=== PATIENT | male | born 1955 | race Caucasian/White ===

== ENCOUNTER 2020-10-25 16:18 | Emergency (ER) | payer OTHER, SELFPAY ==
--- NOTE | ~2020-10-25 | XR_ITS ---
EXAMINATION: XR chest 2V EXAM DATE: 10/25/2020 16:33 INDICATION: Chest series, COVID positive diagnosed 10 days ago. TECHNIQUE: Frontal and lateral projections of the chest obtained and reviewed. There is no prior jocelyne dy for comparison. FINDINGS: Some scattered ill-defined regions of airspace disease consistent with pneumonia. No pneum othorax or pleural effusion. Cardiomediastinal silhouette is normal. Lower cervical fusion hardware. IMPRESSION: Small regions of multifocal airspace disease consistent with COVID pneumonia. Reviewed, dictated and finalized at location B.
--- NOTE | 2020-10-25 16:29 | ED.URI ---
HPI - URI/Sore Throat General Chief Complaint: Upper Respiratory Infection Stated Complaint: chest hurts/covid positive Source: patient Mode of arrival: ambulatory Limitations: no limitations History of Present Illness HPI Narrative: Patient is a 64-year-old male who was sent by his PCP for further evaluation for Covid. Patient reports that PCP sent him for chest x-ray. Patient reports testing positive for Covid approximately 10 days ago. Patient reports continued cough and slight shortness of breath. He denies chest pain. He reports fever is resolved. He reports that he is feeling slightly better. Patient reports that he is taking unknown antibiotics give to me by a friend . He also reports taking vitamins. Patient is unvaccinated. MD elicited complaint: cough Related Data Home Medications Medication Instructions Recorded Confirmed No Home Medications 10/25/20 10/25/20 Allergies Allergy/AdvReac Type Severity Reaction Status Date / Time No Known Allergies Allergy Mild Unverified 10/25/20 16:38 Review of Systems Review of Systems: CONSTITUTIONAL: Denies fever, chills, or sweats. EYES: Denies visual changes, redness, or discharge. ENT: Denies rhinorrhea, congestion, sore throat, or otalgia. CARDIOVASCULAR: Denies chest pain, palpitations, or edema. RESPIRATORY: Reports cough and shortness of breath GASTROINTESTINAL: Denies abdominal pain, nausea, vomiting, or diarrhea. GENITOURINARY: Denies dysuria or hematuria. SKIN: Denies rash or itching. MUSCULOSKELETAL: Denies back pain, joint pain, or myalgia. NEUROLOGIC: Denies headache, numbness, dizziness, or weakness. PSYCHIATRIC: Denies anxiety or depression. [facility] Past Medical History Medical History Deafness in right ear Drug addiction in remission Hernia HTN (hypertension) Recovering alcoholic Surgical History Surgical History H/O carpal tunnel repair Social History Social History (Updated 10/25/20 @ 16:33 by MILADYS Peacock) Smoking status: Former smoker Tobacco type: cigarettes Alcohol intake: former Substance use: former Living arrangements: with family Comments At the time of signature, I have reviewed and agree with nursing past medical, surgical, social, and family history unless otherwise noted. Please see nursing chart for further information. There is no relevant family history pertinent to the presenting complaint. Exam Narrative: GENERAL: Well-appearing, well-nourished, and in no acute distress. HEAD: Normocephalic, atraumatic. EYES: EOMI. No redness or drainage. Conjunctiva are normal. ENT: Mucous membranes pink and moist. CHEST: No respiratory distress. Diminished bilaterally HEART: Regular rate and rhythm. No murmur appreciated. Normal peripheral pulses. EXTREMITIES: Normal range of motion. No edema. SKIN: Warm, dry, no rash. NEURO: No focal deficits. Alert and oriented x3. Gait steady. PSYCH: Normal affect. No signs of depression or anxiety. MDM - URI/Sore Throat MDM Narrative Medical decision making narrative: Patient's chest x-ray shows Covid pneumonia. Discussed with patient to continue monitoring oxygen levels at home with his pulse oximeter. He can take [id number]-[id number] medications for symptom relief. Patient is aware that if he has chest pain or increased shortness of breath, he should go to the emergency department for further evaluation. Differential Diagnosis Differential diagnosis: Likely upper respiratory infection, otitis media, sinusitis, viral infection, influenza and other (Covid) Critical Care Time Critical Care Time Critical Care Time: No Discharge Plan Discharge Clinical Impression: COVID Patient Disposition: Home, Self-Care Condition: Stable Instructions: How to Recover from COVID-19 at Home (ED), Long COVID (ED) Additional Instructions: Continue to take deqf-rpf-qshuynf medications for symptoms as needed. Roman
[2020-10-25 16:38] VITALS: BP 116/55; PULSE 75; RESP 16; TEMP 37; O2SAT 96
== END 2020-10-25 16:58 | disposition home or self-care (01) ==
PROVIDERS: Emergency Provider Nurse Practitioner
DX: U07.1 COVID-19 (principal); I10 Essential (primary) hypertension; Z87.891 Personal history of nicotine dependence
CPT/HCPCS: 71046; 99213; G0463

== ENCOUNTER → 2025-01-21 15:05 | Outpatient (REF) | payer MEDICARE, OTHER, SELFPAY ==
--- NOTE | 2025-01-21 15:05 | S_PTH ---
PATIENT: Gary Benites LOC: [facility] U#:[id number] AGE/SX: 69/M ROOM: RE01/21/[address]: Jimena Vogel PA-C : 1955 BED: DIS: SPEC #: [id number] RECD: 01/22/25 08:07 STATUS: COURTNEY JULIAN #: [id number] TRAE: 01/21/25 15:[address]: Jimena Vogel DEPT: [facility] Surgical RECD BY: Herminia Russo ENTERED: 01/22/25 08:07 SP TYPE: Surgical OTHR DR: UNKNOWN,DOCTOR Tissues: A - Skin Procedures: Hematoxylin and Eosin Stain Gross and Microscopic Level 4
--- OUTSIDE RECORDS SUMMARY | 2025-01-21 19:59 | XMS_ITS | Encounter Summary ---
Author Organization [facility] Address [address] [place] [address] Care Team Providers Care Director Of Marketing Analytics Name Role Phone Isiah Velazco MD Primary Care Provider Encounter Details Date Type Department Care Team (Late st Contact Info) Description 01/16/2025 Results Follow-Up [facility] - [facility] [address] [place] [address] [address] [place] [address] Isiah Velazco MD [address] [facility] [place] [address] [place] AAA SCREEN Social History Tobacco Use Types Packs/Day Years Used Date Smoking Tobacco: Former Cigarettes Smokeless Tobacco: Former Snuff Comments:snuff x 6 mos Alcohol Use Standard Drinks/Week Comments Yes 0 (1 standard drink = 0.6 oz pur e alcohol) OCC WINE Sex and Gender Information Value Date Recorded Sex Assigned at Not on file Legal Sex Male 2:52 AM MANAGING COGNITIVE ENGINEER Gender Identity Not on file Sexual Orientation Not on file documented as of this encounter Miscellaneous Notes * Result Encounter Note - Isiah Velazco MD - 01/16/2025 12:14 PM MANAGING COGNITIVE ENGINEER Abdominal aortic aneurysm screening was negative. Good news. No indication for additional workup at this time. Lets continue with follow-up as planned Please remember to stop by the lab a week or so prior to your next appointment with me so we can discuss results in person. The system will not notify you about this, consider setting a reminder. Take care, and happy holidays JR GING COGNITIVE ENGINEER documented in this encounter Plan of Treatment Upcoming Encounters Date Type Department Care Team (Late st Contact Info) Description 12/15/2025 1:00 PM MANAGING COGNITIVE ENGINEER Office Visit [facility] - [facility] [address] [place] [address] Isiah Velazco MD [address] [place] [address] documented as of this encounter Visit Diagnoses Not on filedocumented in this encounter Care Teams Director Of Marketing Analytics Relationship Specialty Start Date End Date Isiah Velazco MD [address] [place] [address] PCP - General Internal Medicine 12/24/19 documented as of this encounter
--- OUTSIDE RECORDS SUMMARY | 2025-01-21 20:00 | XMS_ITS | Clinical Summary ---
Author Organization [facility] Address [address] [place] [address] Care Team Providers Care Gas Fitter Apprentice Name Role Phone Isiah Velazco MD Primary Care Provider Allergies No known active allergies Medications multivitamin (DAILY-ZENAIDA) tablet Take 1 Tablet by mouth daily. Active aspirin (ECOTRIN EC) 81 mg Tablet, Delayed Release (E.C.) Take 81 mg by mouth daily. Active Active Problems Problem Noted Date Diagnosed Date Hyperlipemia 02/23/2012 Resolved Problems Problem Noted Date Diagnosed Date Resolved Date Right ureteral calculus 06/19/201612/13 Encounters Date Type Department Care Team Description 01/16/2025 Results Follow-Up [address] [place] [address] Isiah Velazco MD [place] AAA SCREEN 01/15/2025 8:17 AM DIRECT CARE WORKER - 01/15/2025 11:59 PM DIRECT CARE WORKER Hospital Encounter [facility] [address] [place] [address] Isiah Velazco MD Discharge Disposition: Home or Self Care 12/19/[address] [place] [address] Isiah Velazco MD 12/16/2024 External Device Data STL ABSTRACTION Provider, Abstract 12/16/2024 External Device Data STL ABSTRACTION Provider, Abstract 12/15/2024 1:30 PM DIRECT CARE WORKER Office Visit [address] [place] [phone] Isiah Velazco MD Encounter for routine adult health examination with abnormal findings (Primary Dx); Mixed hyperlipidemia; Screening for prostate cancer; Influenza vaccination declined; Encounter for abdominal aortic aneurysm (AAA) screening from Last 3 Months Family History Medical History Relation Name Comments Cancer Father Heart Disease Father Lung Cancer Mother Relation Name Status Comments Father Mother Social History Tobacco Use Types Packs/Day Years Used Date Smoking Tobacco: Former Cigarettes Smokeless Tobacco: Former Snuff Comments:snuff x 6 mos Alcohol Use Standard Drinks/Week Comments Yes 0 (1 standard drink = 0.6 oz pur e alcohol) OCC WINE Sex and Gender Information Value Date Recorded Sex Assigned at Not on file Legal Sex Male 2:52 AM DIRECT CARE WORKER Gender Identity Not on file Sexual Orientation Not on file Last Filed Vital Signs Vital Sign Reading Time Taken Comments Blood Pressure 126/68 12/15/2024 1:13 PM DIRECT CARE WORKER Pulse 82 12/15/2024 1:13 PM DIRECT CARE WORKER Temperature 36.7 C (98 F) 12/15/2024 1:13 PM DIRECT CARE WORKER Respiratory Rate 16 12/15/2024 1:13 PM DIRECT CARE WORKER Oxygen Saturation 99% 12/15/2024 1:13 PM DIRECT CARE WORKER Inhaled Oxygen Concentration - - Weight 87.1 kg (192 lb) 12/15/2024 1:13 PM DIRECT CARE WORKER Height 180.3 cm (5' 11) 12/15/2024 1:13 PM DIRECT CARE WORKER Body Mass Index 26.78 12/15/2024 1:13 PM DIRECT CARE WORKER Plan of Treatment Upcoming Encounters Date Type Department Care Team (Late st Contact Info) Description 12/15/2025 1:00 PM DIRECT CARE WORKER Office Visit [address] [place] [phone] Isiah Velazco MD [facility] [address] [place] [address] Health Maintenance Due Date Last Done Comments DTAP/TDAP/TD VACCINES (1 - Tdap) 1976 FIT-DNA Q 3 years 2002 FIT/FOBT Q 1 year 2002 Flex Sig/CT Colonography Q 5 years 2002 PNEUMOCOCCAL VACCINE 50+ YEA RS (1 of 1 - PCV) 12/01/2007 ZOSTER VACCINE (1 of 2) 12/01/2007 Pre-Diabetes and Diabetes Screening 01/26/2023 01/27/2020, 04/22/2013 INFLUENZA VACCINE (#1) 2024 Traditional Medicare (ACO) A nnual Wellness Visit 12/16/2025 12/15/2024, 06/26/2023 COLORECTAL SCREENING 04/22/2026 04/23/2023, 04/23/2023, 04/23/2023, Additional history exists Colorectal Cancer Screening 04/22/2026 RSV VACCINE (60+ or ) (1 - 1-dose 75+ series) 2032 Abdominal Aortic Aneurysm (A AA) Screening Completed 01/15/2025 Procedures Procedure Name Priority Date/Time Associated Diagnosis Comments US AAA SCREEN Routine 01/15/2025 8:45 AM DIRECT CARE WORKER Encounter for routine adult health examination with abnormal findings Encounter for abdominal aortic aneurysm (AAA) screening COLONOSCOPY REPORT Routine 04/23/2023 10 :03 AM CDT HEMOGLOBIN A1C Routine 01/27/2020 11:41 AM DIRECT CARE WORKER Encounter for routine adult health examination with abnormal findings from Last 3 Months or Most Recently Relevant to Health Maintenance Results * US AAA SCREEN (01/15/2025 8:45 AM DIRECT CARE WORKER) Anatomical Region Laterality Modality Abdomen Ultrasound 01/15/2025 8:34 AM DIRECT CARE WORKER Narrative 01/15/2025 2:39 PM DIRECT CARE WORKER [address] [address] [email or web address] Abdominal Aortic Duplex Evaluation Patient: Gary Benites Study ID: [id number] Gender: M : 1955 Age: 69 Race: CAU Height Study Date: 01/15/2025 Weight: Access. #: [id number] *Referring Physician:Isiah Kohler Jonnathan J *Ordering Physician:Isiah KohlerPbx Manager:Danelle Chatman Indications: AAA screening. History: Risk factors: Former smoker - years since quittinyr. Packs per day/years: 4-06/26. Hyperlipidemia. Study data: Study status: Routine. Procedure: A vascular evaluation was performed with the patient in the supine position. Imaged vessel(s): the abdominal aorta. Image quality was good. Abdominal aorta duplex evaluation. Birthdate: Patient birthdate: 1955. Age: Patient is 69year(s) old. Sex: gender: male. Study date: Study date: 01/15/2025. Study time: 08:34 AM. Location: Vascular laboratory. Patient status: Outpatient. Impressions Normal exam without evidence of abdominal aneurysm. Tables: Arterial: + +----+----+ !Location !D AP!D Tr! + +----+----+ !Abdominal aorta - proximal !1.73!1.75! + +----+----+ !Abdominal aorta - mid !1.71!1.59! + +----+----+ !Abdominal aorta - distal !1.18!1.34! + +----+----+ !Right common iliac - proximal!1.19!0.97! + +----+----+ !Left common iliac - proximal !1.19!1.02! + +----+----+ *Velocities are expressed in cm/s, Diameters are expressed in cm Prepared and Electronically Authenticated Ramón Flanagan [id number]:39:29 Procedure Note Ramón Flanagan MD - 01/15/[address] [address] [email or web address] Abdominal Aortic Duplex Evaluation Patient: Gary Benites Study ID: [id number] Gender: Angelia : 1955 Age: 69 Race: [facility] Height Study Date: 01/15/2025 Weight: Access. #: [id number] *Referring Physician:Isiah Kohler JonnathanJ *Ordering Physician:Isiah KohlerPbx Manager:Danelle Chatman Indications: AAA screening. History: Risk factors: Former smoker - years since quittinyr.Packs per day/years: 4-06/26. Hyperlipidemia. Study data: Study status: Routine. Procedure: A vascular evaluationwas performed with the patient in the supine position. Imaged vessel(s): the abdominal aorta. Image quality was good. Abdominal aorta duplexevaluation. Birthdate: Patient birthdate: 1955. Age: Patient is 69year(s)old. Sex: gender: male. Study date: Study date: 01/15/2025. Studytime: 08:34 AM. Location: Vascular laboratory. Patient status: Outpatient. Impressions Normal exam without evidence of abdominal aneurysm. Tables: Arterial: + +----+----+ !Location !D AP!D Tr! + +----+----+ !Abdominal aorta - proximal !1.73!1.75! + +----+----+ !Abdominal aorta - mid !1.71!1.59! + +----+----+ !Abdominal aorta - distal !1.18!1.34! + +----+----+ !Right common iliac - proximal!1.19!0.97! + +----+----+ !Left common iliac - proximal !1.19!1.02! + +----+----+ *Velocities are expressed in cm/s, Diameters are expressed in cm Prepared and Electronically Authenticated Ramón Flanagan [id number]:39:29 Isiah Velazco MD ORDERABLES Final R esult * COLONOSCOPY REPORT (04/23/2023 10:03 AM CDT) us Abstract Provider GI PROCEDURE ORDERABLES Final Result [facility]# [id number] [address] [place] [address] * HEMOGLOBIN A1C (01/27/2020 11:41 AM DIRECT CARE WORKER) HEMOGLOBIN A1C 5.4 <5.7 % of total Hgb buuteeq [facility] Comment: For the purpose of screening for the presence of diabetes: <5.7% Consistent with the absence of diabetes 5.7-6.4% Consistent with increased risk for diabetes (prediabetes) > or =6.5% Consistent with diabetes This assay result is consistent with a decreased risk of diabetes. Currently, no consensus exists regarding use of hemoglobin A1c for diagnosis of diabetes in children. According to [place] Diabetes Association (ADA) guidelines, hemoglobin A1c <7.0% represents optimal control in non- diabetic patients. Different metrics may apply to specific patient populations. Standards of Medical Care in Diabetes(ADA). Test [facility]formed at[facility] [address] [id number] Isaac Giraldo D.O., MPH Blood 01/27/2020 11:4 1 AM DIRECT CARE WORKER us Isiah Velazco MD CHEMISTRY ORDERABLES Ed ited Result - Final buuteeq [address] [id number] from Last 3 Months or Most Recently Relevant to Health Maintenance Insurance MEDICARE PART A AND B [facility] Advance Directives For more information, please contact: [phone] * Full Code (Latest Code Status on File) Date Activated Date Inactivated Comments 06/22/2016 4:29 PM 06/22/2016 10:11 PM * Full Code Date Activated Date Inactivated Comments 06/22/2016 4:29 PM 06/22/2016 4:29 PM * Full Code Date Activated Date Inactivated Comments 06/22/2016 1:15 PM 06/22/2016 4:29 PM Care Teams Gas Fitter Apprentice Relationship Specialty Start Date End Date Isiah Velazco MD [address] [place] [phone] PCP - General Internal Medicine 12/24/19
== END ==
LOC: ANHLAB 15:05
PROVIDERS: Visit Provider Physician Assistant Surgical
DX: C44.91 Basal cell carcinoma of skin, unspecified (principal)
CPT/HCPCS: 88305